=== PATIENT | female | born 2000 | race Caucasian/White ===

== ENCOUNTER 2024-05-15 06:48 | Day surgery (SDC) | payer OTHER, SELFPAY ==
--- NOTE | 2024-05-13 11:54 | PCM.HP.BLA ---
History and Physical Date of Admission: 05/15/24 Pre-Op History and Physical HPI: The patient is a 24 year old female presenting for discussion regarding EM polyp on ultrasound. Pt would like to conceive. Counseled on endosee vs hysteroscopy D&C, polypectomy. pre-operative visit. She is scheduled for Hysteroscopy D&C and polypectomy, for Endometrial polyp on 05-15-24. Procedure discussed along with risks, benefits and complications. Other alternatives discussed for management. Consent form signed? Yes. PAST MEDICAL HISTORY PAST MEDICAL HISTORY Diagnosis Date ? ADHD (attention deficit hyperactivity disorder) ? Elevated LDL cholesterol level 2022 ? SHARON (generalized anxiety disorder) ? Iron deficiency anemia 2022 ? Migraine ? Thyroid dysfunction ? Vitamin D deficiency 2022 PAST SURGICAL HISTORY PAST SURGICAL HISTORY Procedure Laterality Date ? EYE SURGERY HX Bilateral CURRENT MEDICATIONS Current Outpatient Medications Medication Sig Dispense Refill ? medroxyPROGESTERone (PROVERA) 10 mg tablet Take 1 tablet by mouth once daily. For 10 days then stop 30 tablet 3 ? metFORMIN ER (GLUCOPHAGE XR) 500 mg 24 hr tablet Take 1 tablet by mouth as directed. take one tablet daily, increase slowly to 1000 mg bid as tolerated 120 tablet 3 ? PNV no.95/ferrous fum/folic ac ( ORAL) Take by mouth. ? levothyroxine (SYNTHROID) 75 mcg tablet Take 1 tablet by mouth once daily. (Patient taking differently: Take 112 mcg by mouth once daily.) 30 tablet 1 No current facility-administered medications for this visit. ALLERGIES: Ibuprofen PERSONAL HISTORY: SOCIAL HISTORY Social History Tobacco Use ? Smoking status: Never ? Smokeless tobacco: Never Vaping Use ? Vaping status: Never Used Substance Use Topics ? Alcohol use: Yes Comment: rare ? Drug use: Never FAMILY HISTORY: FAMILY HISTORY FAMILY HISTORY Problem Relation Age of Onset ? Thyroid Mother ? Ulcerative Colitis Father REVIEW OF SYMPTOMS: negative except as noted above PHYSICAL EXAMINATION: VITALS: Blood pressure 126/78, pulse 81, weight 93.9 kg (207 lb), last menstrual period 01/11/2024, SpO2 99%. GENERAL: The patient is well nourished, well hydrated in no acute distress. , The patient is oriented to time, place, and person. NECK: full range of motion LUNGS: Clear to auscultation bilaterally. no wheezes, rhonchi or rales HEART: Regular rate and rhythm, Normal heart sounds, and No murmurs or gallops Indication secondary amenorrhea, polycystic ovarian syndrome, elevated testosterone Impression The uterus is retroflexed and measures 75 mm x 39 mm x 50 mm. The endometrial thickness is 7.7 mm. There is a 3 mm myometrial cyst in anterior body of the uterus. There is a 5 mm x 5 mm x 3 mm echogenic area within the endometrial cavity with a vascular stalk, suggestive of an endometrial polyp. The right ovary measures 28 mm x 28 mm x 24 mm. The left ovary measures 16 mm x 16 mm x 15 mm. There is physiologic free fluid visualized. Recommendations Concern for endometrial polyp. Consider SIS or hysteroscopy to better characterize if clinically indicated. IMPRESSION: 24yo with EM polyp on ultrasound PLAN: hysteroscopy, D&C, polypectomy Pt has been counseled on risks/benefits and alternatives of surgery including but not limited to anesthesia, bleeding, infection, uterine perforation with subsequent injury to pelvic structures including bowel, bladder, ureters and vessels. Pt wishes to proceed with surgery at this time. Pre and post op instructions reviewed I have reviewed and updated past medical and surgical history, medications and allergies
[2024-05-15] VITALS (7 sets, daily range): BP systolic 120–144; BP diastolic 87–94; PULSE 84–105; RESP 16–18; TEMP 36.2–36.9; O2SAT 95–100; BMI 42.3
[2024-05-15 07:23] LABS: Internal QC Validated? YES +Cl - CLEAR BKGD; Pregnancy, Urine Negative Negative; Record Kit Lot#,Urine Preg 885059
--- NOTE | 2024-05-15 07:41 | PCM.PRE.AN2 ---
ASA Classification* ASA Classification ASA Classification: 3 Assessment & Plan Anesthesia* Anesthesia Assessment Anesthesia Assessment: Discussed sedation and/or anesthesia options, risks, benefits, and alternatives with patient/parents/legal guardian/POA. Questions invited. The patient/parents/legal guardian/POA seems to understand and agrees to proceed with anesthesia plan. Reviewed the physical assessment, medical history, allergy history and patient home medications list prior to surgery/procedure/anesthetic and documented any changes. Performed airway and anesthesia risk assessments. Anesthesia Type Anesthesia Type: MAC History Source History Obtained from:: Patient and Chart Anesthesia Focused Assessment* Temperature: 98.4 F Pulse Rate: 105 Blood Pressure: 144/91 Respiratory Rate: 18 Pulse Ox: 98 Oxygen Delivery Method: Room Air Airway Assessment Mouth opens: >3 cm Mallampati Score: II Teeth Condition: Intact Neck Range of motion (ROM): Full ROM Focused Labs Anesthesia Preop lab: CBC CHEMISTRY COAG Urine Test Negative Negative 05/15/24 07:10 05/15/24 Pre-Assessment Diagnosis/Proposed Procedure Planned Operative Procedure(s): HYSTEROSCOPY D&C POSS POLYPECTOMY Anesthesia History Anesthesia History - senior shipping clerk: Anesthesia History - senior shipping clerk Hx Hospitalization No 05/02/24 12:55 Any Problems With Anesthesia Yes: NAUSEA 05/02/24 12:55 Cholinesterase deficiency No 05/02/24 12:55 You/Your Family Experience No 05/02/24 12:55 fever (hyperthermia) with Relationship Recent Exposure to Contagious No 05/15/24 07:26 Disease Does patient have nerve No 05/02/24 12:55 stimulator Patient instructed to have device shut off --Does patient have Pacemaker No 05/15/24 07:26 or ICD? When Was Last Pacemaker Check QUESTION #4 FULL TEXT: You/Your Family Experience fever (hyperthermia) with Anesthesia Last Oral Intake Last Oral intake: Last Oral Intake NPO since 06:00 05/15/24 07:26 Meds taken in AM with sips of Yes 05/15/24 07:26 water? Meds patient instructed to levothyroxine 05/15/24 07:26 take am of surgery Any additional information?: Yes NPO since: 00:00 Meds taken in AM with sips of water?: Yes PONV PONV - senior shipping clerk: PONV - senior shipping clerk Female Yes 05/02/24 12:55 HX of Motion Sickness Yes 05/02/24 12:55 HX of N/V After Surgery Yes 05/02/24 12:55 Non-Smoker Yes 05/02/24 12:55 Duration of Surgery greater No 05/02/24 12:55 than 60 minutes Number of Risk Factors 4 05/02/24 12:55 PONV Score Severe Risk 05/02/24 12:55 Height & Weight Height & Weight: Anesthesia: Height & Weight Height 4 ft 11 in 05/15/24 07:26 Weight: 95.2 kg 05/15/24 07:26 Body Mass Index (BMI) 42.3 05/15/24 07:26 Respiratory Assessment Respiratory Assessment - senior shipping clerk: Respiratory Tract Infection Hx - senior shipping clerk Hx Respiratory Tract Infection No 05/02/24 12:55 STOP Sleep Apnea STOP Sleep Apnea - senior shipping clerk: STOP Sleep Apnea - senior shipping clerk Hx Hypertension No 05/02/24 12:55 Hx Sleep Apnea No 05/02/24 12:55 CPAP BIPAP Do you snore loudly (louder No 05/02/24 12:55 than talking or can be heard Do you often feel tired/ No 05/02/24 12:55 fatigued/ sleepy during daytime? Has anyone observed you stop No 05/02/24 12:55 breathing during sleep? STOP Results Negative 05/02/24 12:55 QUESTION #5 FULL TEXT : Do you snore loudly (louder than talking or can be heard through closed doors)? Tobacco Use History Tobacco Use History - senior shipping clerk: Tobacco Use History - senior shipping clerk Tobacco Use Smoking Status Never smoker 05/02/24 12:55 Hx Tobacco Use No 05/02/24 12:55 Years Smoking Packs Smoked per Day Smoking Cessation Date was within the last 15 years Hx Smoking Cessation Date Hx Smoking Cessation Counseling Hematologic Medial History Hematologic Hx - senior shipping clerk: Hematologic Medical Hx - object oriented developer Hx of Blood Transfusion No 05/02/24 12:55 Hx of Transfusion in last 3 No 05/02/24 12:55 Months Date of Last Transfusion (if within last 3 months) Ever experience any problems No 05/02/24 12:55 with transfusion(s)? Specify any problems Hx of Preganancy in last 3 No 05/02/24 12:55 Months Nurse Filling Out Transfusion DSCHRIBER 05/02/24 12:55 & Questions: Date: 05/02/24 05/02/24 12:55 Time: 12:57 05/02/24 12:55 Patient unable to answer at this time (ie. confused, unrespo /Reproduction History /Reproductive History - senior shipping clerk: /Reproductive Hx- senior shipping clerk Hx Now No 05/02/24 12:55 Gestational Age (in weeks): EDC: Hx Hx Para Hx Section SAB No 05/02/24 12:55 PFSH Medical History Polycystic ovary syndrome Wears glasses Alcohol use Thyroid disease Migraine headache History of IBS Non-smoker Home Medications ?Medication ?Instructions ?Recorded ?Last Taken ?Type ALYSSA-INOSITOL 2 cap PO QHS 05/02/24 Unknown History levothyroxine 125 mcg capsule 125 mcg PO DAILY 05/02/24 05/15/24 06:00 History metformin 500 mg tablet,extended 500 mg PO QPM 05/02/24 Unknown History release 24 hr [id number] 1 mg 1 tab PO DAILY 05/02/24 Unknown History tablet sumatriptan succinate 25 mg tablet 25 mg PO Q2H PRN migraine headache 05/02/24 Unknown History (Imitrex) Allergy/AdvReac Type Severity Reaction Status Date / Time NSAIDS (Non-Steroidal Allergy Severe Swelling Verified 05/15/24 07:25 Anti-Inflamma Surgical History Hx of eye surgery Hx of colonoscopy Hx of wisdom tooth extraction Social History Smoking Status: Never smoker Review of Systems (Anesthesia) ROS Narrative System reviewed and no additional complaints, except as documented.
--- NOTE | 2024-05-15 08:30 | EMB_PTH ---
PATIENT: UBALDO GLASER LOC: [facility] [place] U#:[id number] AGE/SX: 24/F ROOM: RE05/15/[address]: Dr. Ebony Norman, MDDOB: 2000 BED: DIS: 05/15/2024 SPEC #: [id number] RECD: 05/15/24 14:45 STATUS: MARY SUSIE #: [id number] GAYE: 05/15/24 08:[address]: Ebony Norman DEPT: SURGICAL PATHOLOGY RECD BY: Reyna Rockwell ENTERED: 05/16/24 08:33 SP TYPE: ENDOM BX/C ULISES DR: KELSIE URBINA, MOR Tissues: Endometrium, NOS Procedures: Surgery Specimen Level IV HEADER OPERATION: Hysteroscopy, D&C, polypectomy PRE-OP DIAGNOSIS: Endometrial polyp TISSUE SUBMITTED: Endometrial curettings and polyp MICROSCOPIC DIAGNOSIS Endometrial curettings and polyp, D&C and polypectomy: Predominantly proliferative endometrium with focal area of mildly disordered proliferative endometrium. Fragments of myometrium. See comment. 05/19/2024 COMMENT Clinical correlation and appropriate follow up are necessary. MICROSCOPIC DESCRIPTION Slides are reviewed. GROSS DESCRIPTION Received in fixative is one container labeled with the patient's name and designated Endometrial curettings and polyp. The specimen consists of multiple irregular fragments of montoya indurated to hemorrhagic soft tissue that in aggregate measure 3 x 2.5 x 0.3 cm. The specimen is totally submitted in one cassette. ABAD/ 05/16/2024 TC:5 CPT:14644
--- NOTE | 2024-05-15 09:27 | PCM.DC ---
Discharge Instructions Diet Discharge Diet: No restrictions DC O2, CPAP, BIPAP needs Home O2 Discharge instructions: No Dressing / Incision May resume sexual activity in: 1 week Dressing / Incision Call your doctor if you observe: Fever of 101 or Higher, Inability to urinate, Using more than 1 pad per hour and Uncontrolled pain Follow Up Care Please Follow Up With: Ebony Norman MD When: office will call with pathology results. if you have any concerns please call for post op appt. [phone] Test Results: Test results from this visit will be discussed in further detail at your follow-up appointment, if applicable. Discharge Plan Admission Attending Provider: Ebony Norman Primary Care Provider: KELSIE URBINA Instructions Print Language: Khmer Discharge Orders/Prescriptions Prescriptions: No Action metformin 500 mg tablet extended release 24 hr 500 mg PO QPM levothyroxine 125 mcg capsule 125 mcg PO DAILY ALYSSA-INOSITOL 2 cap PO QHS [id number]-[id number]-FA 1 mg tablet 1 tab PO DAILY sumatriptan succinate [Imitrex] 25 mg tablet 25 mg PO Q2H PRN (Reason: migraine headache) Rx Instructions: do not exceed 8 doses per 24 hrs Referrals / Follow Up: KELSIE URBINA, CUSTODIAN SUPERVISOR-C [Primary Care Provider] - Disposition Disposition (needs filled in before D/C Order can be placed): Home, Self Care
--- NOTE | 2024-05-15 09:28 | OP.PCM_ITS ---
Operative Report (Standard) Operative Information Date of Procedure: 05/15/24 Pre-Operative Diagnosis: Endometrial polyp Post-Operative Diagnosis: same Surgery/Procedure Performed: Hysteroscopy, D&C, polypectomy mainframe applications developer: Yes Plane Tender: girish h[place] ms3 Tasks completed by senior executive assistant: Retracting Additional construction project assistant?: No Type of Anesthesia: MAC RN Documented Start/Stop Times: Operation Date: 05/15/24 08:30 Case Time Into Pre-Op 05/15/24 07:05 Anesthesia Start 05/15/24 07:38 Into Room 05/15/24 07:38 Out of Pre-Op 05/15/24 07:38 Procedure Start 05/15/24 08:54 Procedure Start Time: 08:54 Procedure Stop Time: 09:25 Select all DRAINS/GRAFTS/IMPLANTS that apply: None Estimated Blood Loss: <5cc Specimen collected: Yes Description of specimen(s) removed: endometrial curettings, endometrial polyp Description of surgery: Informed consent was obtained the patient was taken the operating room she was placed in supine position. She was given anesthesia. She was then placed in the [facility] where she was prepped and draped in the normal sterile fashion. bladder drained. At this time the weighted speculum was placed in the posterior fornix of vagina. Single-tooth tenaculum was used to gently grasp the anterior lip the cervix. At this time the uterine cavity was sounded to approximately 8 cm. Gentle dilatation was performed once adequate dilatation of the cervix was achieved the hysteroscope using normal saline as a distention medium was placed. Tubal ostia visualized- endometrial polyp noted at right tubal ostia. . Symphion resecting device used to obtain endometrial curettings and to perform polypectomy- where the polyp was located was difficult to remove entire polyp- tried using polyp forcep through the operative channel of hysteroscope but difficult to keep distention of the uterus to continue with good visualization. ther was a small part of polyp that remained on posterior aspect of the tubal ostia however the ostia was visualized and clear. i do not feel this will interfere with conception and decision at this time was to stop procedure. Tissue will be sent to pathology for evaluation. Tenaculum removed. Good hemostasis. Instrument, lap count correct x 2. Vaginal Sweep was negative. Surgical Findings: right tubal ostia polyp. Complications Complications: No Admit VTE Documentation VTE Present on Admission: Yes VTE Mechan Device Prophylaxis: SCD's VTE Pharm Prophylaxis ordered?: No Reason prophylaxis not ordered: Treatment Not Indicated
--- NOTE | 2024-05-15 09:38 | PCM.POST.ANE ---
Anesthesia: Postop Eval I Current Vital Signs Temperature: 97.2 F Pulse Rate: 84 Blood Pressure: 120/87 Respiratory Rate: 16 Pulse Ox: 95 Oxygen Delivery Method: Room Air Assessment Airway patent: Yes Spontaneous unlabored respirations: Yes Mental status: Awake and Calm nausea: No Vomiting: No Anesthesia Complication: No Fluid Hydration Crystalloid volume administer (ml): 10 Total IV fluid infused: 10 Progress Note Anesthesia document: Postop Eval 1 completed: Yes
[2024-05-15] MEDS: HYDROcodone Bitartrate/Apap 5/325 Tablet PO (10:08)
--- NOTE | 2024-05-15 13:40 | POSTOPAN2_ITS ---
Anesthesia Postop Eval I Sum Postop Eval Completion status Anesthesia document: Postop Eval 1 completed: Yes Anesthesia Postop Eval I Summary Anesthesia Postop Eval I Summary: Anesthesia Postop Eval I: Assessment Summary Airway patent Yes 05/15/24 09:38 LAW [email or web address] Spontaneous unlabored Yes 05/15/24 09:38 LAW [email or web address] respirations Mental status Awake,Calm 05/15/24 09:38 LAW [email or web address] nausea No 05/15/24 09:38 LAW [email or web address].[email or web address] Vomiting No 05/15/24 09:38 LAW [email or web address] Anesthesia Postop Eval I: Fluid Summary Crystalloid volume administer 10 05/15/24 09:38 LAW [email or web address] (ml) Colloids volume administered ( ml) Blood Product volume administered (ml) Total IV fluid infused 10 05/15/24 09:38 LAW [email or web address] Anesthesia Postop Eval I: Summary Notes Anesthesia Complication No 05/15/24 09:38 LAW [email or web address] Anesthesia Complication Comment: Post-operative progress note Anesthesia: Postop Eval II Evaluation Mental status: Awake and Calm Pain Level: 1 nausea: No Vomiting: No Complications Anesthesia Complication: No
--- NOTE | 2024-05-15 13:40 | PCM.POSTANE2 ---
Anesthesia Postop Eval I Sum Postop Eval Completion status Anesthesia document: Postop Eval 1 completed: Yes Anesthesia Postop Eval I Summary Anesthesia Postop Eval I Summary: Anesthesia Postop Eval I: Assessment Summary Airway patent Yes 05/15/24 09:38 MANAGER [email or web address] Spontaneous unlabored Yes 05/15/24 09:38 MANAGER [email or web address] respirations Mental status Awake,Calm 05/15/24 09:38 MANAGER [email or web address] nausea No 05/15/24 09:38 MANAGER [email or web address] Vomiting No 05/15/24 09:38 MANAGER [email or web address] Anesthesia Postop Eval I: Fluid Summary Crystalloid volume administer 10 05/15/24 09:38 MANAGER [email or web address] (ml) Colloids volume administered ( ml) Blood Product volume administered (ml) Total IV fluid infused 10 05/15/24 09:38 MANAGER [email or web address] Anesthesia Postop Eval I: Summary Notes Anesthesia Complication No 05/15/24 09:38 MANAGER [email or web address].[email or web address] Anesthesia Complication Comment: Post-operative progress note Anesthesia: Postop Eval II Evaluation Mental status: Awake and Calm Pain Level: 1 nausea: No Vomiting: No Complications Anesthesia Complication: No
== END 2024-05-15 10:20 | disposition home or self-care (01) ==
LOC: SDC 06:54 → AC 06:55
PROVIDERS: Anesthesiology; PCP Nurse Practitioner Family; Referring Provider Obstetrics & Gynecology; Visit Provider Obstetrics & Gynecology
PROC: 0UB98ZZ Excision of Uterus, Via Natural or Artificial Opening Endoscopic (ICD-10-PCS; CPT 58558; principal; 2024-05-15 08:15)
DX: N84.0 Polyp of corpus uteri (principal); E78.00 Pure hypercholesterolemia, unspecified; E07.9 Disorder of thyroid, unspecified; Z79.899 Other long term (current) drug therapy; Z79.84 Long term (current) use of oral hypoglycemic drugs
CPT/HCPCS: 58558; 00952; 81025; 88305; A4216; J2405